=== PATIENT | female | born 1950 | race African-American/Black ===

== ENCOUNTER 2017-02-06 05:44 | Day surgery (SDC) | payer MEDICARE ==
--- NOTE | ~2017-02-06 | EGD ---
EGD REPORT [facility] [address] [id number] NAME: TRAMAINE ANDERSON : [birth year] STATUS : REG [facility]#: [id number] AGE: 66 ADM/REG DATE : 02/06/17 MR#: [id number] REPORT SERV DATE: 02/06/17 DICTATED BY: KAREN AGGARWAL DATE: 02/06/17 REPORT STATUS : Draft TRANSCRIBED BY: [facility] DATE: 02/06/17 Endoscopy Center Patient Name: Tramaine Anderson Date of : 1950 Attending MD: KAREN AGGARWAL, Procedure Date No Time: 02/06/2017 Procedure: Colonoscopy Indications: Screening for colorectal malignant neoplasm Medicines: Monitored Anesthesia Care Complications: No immediate complications. Estimated blood loss: None. Procedure: Pre-Anesthesia Assessment: - ASA Grade Assessment: III - A patient with severe systemic disease. After I obtained informed consent, the scope was passed under direct vision. Throughout the procedure, the patient's blood pressure, pulse, and oxygen saturations were monitored continuously. The CF [id number] was introduced through the anus and advanced to the cecum, identified by appendiceal orifice and ileocecal valve. The colonoscopy was performed without difficulty. The patient tolerated the procedure well. The quality of the bowel preparation was good. Findings: The perianal and digital rectal examinations were normal. Internal hemorrhoids were found during retroflexion and were Grade II (internal hemorrhoids that prolapse but reduce spontaneously). Multiple small-mouthed diverticula were found in the sigmoid colon, in the descending colon, in the transverse colon and in the ascending colon. The exam was otherwise without abnormality on direct and retroflexion views. Impression: - Internal hemorrhoids. - Diverticulosis in the sigmoid colon, in the descending colon, in the transverse colon and in the ascending colon. - The examination was otherwise normal on direct and retroflexion views. Recommendation: - Patient has a contact number available for emergencies. The signs and symptoms of potential delayed complications were discussed with the patient. Return to normal activities tomorrow. Written discharge instructions were provided to the patient. - Return to previous diet. EGD REPORT [address] [address] NAME: TRAMAINE ANDERSON : [birth year] [place] [facility] [place] [id number] AGE: 66 ADM/REG DATE : 02/06/17 MR#: [id number] REPORT SERV DATE: 02/06/17 DICTATED BY: KAREN AGGARWAL DATE: 02/06/17 REPORT STATUS : Draft TRANSCRIBED BY: [employer] DATE: 02/06/17 - Continue present medications. - Repeat colonoscopy in 10 years for screening purposes. Procedure Code(s): --- Professional --- 69879, Colonoscopy, flexible, proximal to splenic flexure; diagnostic, with or without collection of specimen(s) by brushing or washing, with or without colon decompression (separate procedure) Diagnosis Code(s): --- Professional --- K64.1, Second degree hemorrhoids K57.30, Diverticulosis of large intestine without perforation or abscess without bleeding Z12.11, Encounter for screening for malignant neoplasm of colon CPT copyright 2013 [employer]. All rights reserved. The codes documented in this report are preliminary and upon operations research scientist review may be revised to meet current compliance requirements. KAREN AGGARWAL, 02/06/2017 7:34 AM Number of Addenda: 0 Note Initiated On: 02/06/2017 7:07 AM Scope Withdrawal Time 0 hours 9 minutes 35 seconds [address] [place] [address] [id number]
[~2017-02-06 05:44] MED LIST: B121000P SC; GLUCPH PO; IRON PO; L20 PO; LEVOTHYROXIN200 MCG PO; LEVOTHYROXIN25 MCG PO; LIPITOR40 PO; LOTREL1 CA4 PO; MULTIVITAMI1 PO; VOLT75 PO
== END 2017-02-06 23:59 | disposition home or self-care (01) ==
LOC: DMU 05:44
PROVIDERS: Internal Medicine Gastroenterology
PROC: 0DJD8ZZ Inspection of Lower Intestinal Tract, Via Natural or Artificial Opening Endoscopic (ICD-10-PCS; principal; 2017-02-06 07:30)
DX: Z12.11 Encounter for screening for malignant neoplasm of colon (principal); K64.1 Second degree hemorrhoids; K57.30 Diverticulosis of large intestine without perforation or abscess without bleeding; I10 Essential (primary) hypertension; E66.9 Obesity, unspecified; E11.9 Type 2 diabetes mellitus without complications; Z79.899 Other long term (current) drug therapy; Z96.653 Presence of artificial knee joint, bilateral; Z90.49 Acquired absence of other specified parts of digestive tract; Z98.890 Other specified postprocedural states
CPT/HCPCS: 82962